=== PATIENT | female | born 1960 | race Caucasian/White ===

== ENCOUNTER 2018-11-29 19:17 | Emergency (ER) | payer MEDICAID, MEDICARE ==
[2018-11-29] MEDS ORDERED: Sulfamethoxazole/Trimethoprim 800-160 MG Tab PO ONE (19:18)
--- NOTE | 2018-11-29 19:56 | EDM.PDOC ---
ED HPI GENERAL MEDICAL PROBLEM - General Chief Complaint: General Stated Complaint: FEVER Time Seen by Provider: 11/29/18 19:33 Source of Information: Reports: Patient History Limitations: Reports: No Limitations - History of Present Illness INITIAL COMMENTS - FREE TEXT/NARRATIVE: Evelny is a 58 yo female who presents to the ED with concerns of a fever. States it started this morning and has been alternating Tylenol and ibuprofen, which has seemed to help. She states she is with the [facility] that is in town and does [facility] She isn't sure if it is upper respiratory stuff or a bladder infection. States the last 4 days she has noticed an increase in frequency, urgency and burning with urination. She admits she has been trying to drink a lot of fluids today. States mostly water and gatorade. Treatments [employer]: Reports: Acetaminophen, NSAIDS - Related Data Allergies Allergy/AdvReac Type Severity Reaction Status Date / Time doxycycline Allergy Rash Verified 11/29/18 19:18 tetracycline Allergy Rash Verified 11/29/18 19:18 Home Meds: Home Meds Albuterol Sulfate [Proair Hfa] 1 inh INH ASDIRECTED 11/29/18 [History] Atenolol 50 mg PO DAILY 11/29/18 [History] Ezetimibe [Zetia] 10 mg PO DAILY 11/29/18 [History] HCTZ/Triamterene [Maxzide 25-37.5 MG] 1 tab PO DAILY 11/29/18 [History] Hydrocodone/Acetaminophen [Hydrocodon-Acetaminophn 10-325] 1 tab PO Q6H PRN [History] Loratadine/Pseudoephedrine [Claritin-D 24 Hour Tablet] 1 tab PO DAILY 11/29/18 [ History] Montelukast [Singulair] 10 mg PO DAILY 11/29/18 [History] Simvastatin 10 mg PO DAILY 11/29/18 [History] tiZANidine HCl [Zanaflex] 2 mg PO DAILY 11/29/18 [History] Past Medical History Cardiovascular History: Reports: High Cholesterol, Hypertension Musculoskeletal History: Reports: Osteoarthritis, Osteoporosis Endocrine/Metabolic History: Reports: Diabetes, Type II - Past Surgical History HEENT Surgical History: Reports: Tonsillectomy Musculoskeletal Surgical History: Reports: Carpal Tunnel Social & Family History - Tobacco Use Smoking Status *Q: Never Smoker - Caffeine Use Caffeine Use: Reports: Coffee, Soda - Recreational Drug Use Recreational Drug Use: No ED ROS GENERAL - Review of Systems Review Of Systems: See Below Constitutional: Reports: Fever, Chills HEENT: Reports: Rhinitis Respiratory: Reports: Cough (dry). Denies: Shortness of Breath, Wheezing, Sputum Cardiovascular: Reports: No Symptoms GI/Abdominal: Reports: Diarrhea. Denies: Bloody Stool, Nausea, Vomiting : Reports: Dysuria, Flank Pain, Frequency, Urgency. Denies: Hematuria ED EXAM, GENERAL - Physical Exam Exam: See Below Exam Limited By: No Limitations General Appearance: Alert, WD/WN, No Apparent Distress Ears: Normal External Exam, Normal Canal, Hearing Grossly Normal, Normal TMs Nose: Normal Inspection, Normal Mucosa, No Blood Throat/Mouth: Normal Inspection, Normal Lips, Normal Teeth, Normal Gums, Normal Oropharynx, Normal Voice, No Airway Compromise Head: Atraumatic, Normocephalic Neck: Normal Inspection, Supple Respiratory/Chest: No Respiratory Distress, Lungs Clear, Normal Breath Sounds, No Accessory Muscle Use, Chest Non-Tender, Other (dry cough) Cardiovascular: Normal Peripheral Pulses, No Edema, No Murmur GI/Abdominal: Soft, Tender, Hernia (reducible umbilical), Other (obese) Back Exam: CVA Tenderness (L), CVA Tenderness (R) Neurological: Alert, Oriented, Normal Cognition, No Motor/Sensory Deficits Psychiatric: Normal Affect, Normal Mood Skin Exam: Dry, Intact, No Rash, Increased Warmth Course - Vital Signs Last Recorded V/S: Last Vital Signs Temp 99.3 F 11/29/18 20:13 Pulse 83 11/29/18 19:18 Resp 18 11/29/18 19:18 BP 153/68 H 11/29/18 19:18 Pulse Ox 98 11/29/18 19:18 - Orders/Labs/Meds Orders: Active Orders 24 hr Category Date Time Status CULTURE URINE [RM] Stat Lab 11/29/18 19:41 Received Sodium Chloride 0.9% [Normal Saline] 1,000 ml Med 11/29/18 20:01 Active IV .BOLUS Medication Orders Sodium Chloride (Normal Saline) 1,000 mls @ 999 mls/hr IV .BOLUS ONE Stop: 11/29/18 21:01 Last Admin: 11/29/18 20:08 Dose: 999 mls/hr Labs: Laboratory Tests 11/29/18 11/29/18 11/29/18 Range/Units 19:41 19:41 19:52 WBC 8.1 (5.0-10.0) 10^3/uL RBC 4.79 (4.00-5.50) 10^6/uL Hgb 13.7 (12.0-16.0) g/dL Hct 42.0 (37.0-47.0) % MCV 87.7 (82.0-94.0) fL MCH 28.6 (27.0-32.0) pg MCHC 32.6 L (33.0-38.0) g/dL RDW Coeff of Elena 13.1 (11.0-15.0) % Plt Count 260 (150-400) 10^3/uL Neut % (Auto) 71.6 (35-85) % Lymph % (Auto) 17.5 (10-55) % [place] % (Auto) 6.6 (0-16) % Eos % (Auto) 4.1 (0-5) % Baso % (Auto) 0.2 (0-3) % Neut # (Auto) 5.79 (1.80-7.00) 10^3/uL Lymph # (Auto) 1.41 (1.00-4.80) 10^3/uL [place] # (Auto) 0.53 (0.00-0.80) 10^3/uL Eos # (Auto) 0.33 (0.00-0.45) 10^3/uL Baso # (Auto) 0.02 10^3/uL Sodium 142 (136-145) mEq/L Potassium 4.0 (3.5-5.0) mEq/L Chloride 106 (98-106) mEq/L Carbon Dioxide 28 (21-32) mmol/L BUN 16 (7-18) mg/dL Creatinine 0.7 (0.6-1.0) mg/dL Est Cr Clr Drug Dosing 80.75 mL/min Estimated GFR (MDRD) > 60 (>=60) mL/min Glucose 107 H (75-99) mg/dL Calcium 9.1 (8.4-10.1) mg/dL Total Bilirubin 0.4 (0.0-1.0) mg/dL AST 12 L (15-37) U/L ALT 22 (12-78) U/L Alkaline Phosphatase 71 (46-116) U/L C-Reactive Protein 1.6 H (0.2-0.8) mg/dL Total Protein 7.0 (6.4-8.2) g/dL Albumin 3.5 (3.4-5.0) g/dL Urine Color Yellow (YELLOW) Urine Appearance Cloudy (CLEAR) Urine pH 6.0 (4.5-8.0) Ur Specific [place] 1.025 H (1.003-1.020) Urine Protein Trace H (NEGATIVE) mg/dL Urine Glucose (UA) Negative (NEGATIVE) mg/dL Urine Ketones Trace H (NEGATIVE) mg/dL Urine Occult Blood Small H (NEGATIVE) Urine Nitrite Positive H (NEGATIVE) Urine Bilirubin Negative (NEGATIVE) Urine Urobilinogen 0.2 (0.2-1.0) EU/dL Ur Leukocyte Esterase Trace H (NEGATIVE) Urine RBC 20-30 H (0-5) /HPF Urine WBC 20-30 H (0-5) /HPF Calcium Oxalate Crystal Moderate H (NOT SEEN) /HPF Urine Bacteria Many H (NOT SEEN) /HPF Meds: Medications Generic Name Dose Route Start Last Admin Trade Name Freq PRN Reason Stop Dose Admin Sodium Chloride 1,000 mls @ 999 mls/hr 11/29/18 20:01 11/29/18 20:08 Normal Saline IV 11/29/18 21:01 999 mls/hr .BOLUS ONE Administration Discontinued Medications Generic Name Dose Route Start Last Admin Trade Name Freq PRN Reason Stop Dose Admin Acetaminophen 650 mg 11/29/18 19:57 11/29/18 20:00 Tylenol PO 11/29/18 19:58 650 mg NOW ONE Administration Ceftriaxone Sodium 1 gm 11/29/18 20:01 11/29/18 20:08 Rocephin IVPUSH 11/29/18 20:02 1 gm ONETIME ONE Administration - Re-Assessments/Exams Free Text/Narrative Re-Assessment/Exam: Urinalysis did confirm UTI. Labs otherwise stable. 1 liter of NS was given with 1 gram of Rocephin. Temperature did improve to 99. Will discharge at this time with oral antibiotics. Patient states she is feeling a lot better and feels satisfactory for discharge. 11/29/18 21:11 Departure - Departure Time of Disposition: 21:09 Disposition: Home, Self-Care 01 Clinical Impression: UTI, Urinary tract infectious disease - Discharge Information Instructions: Urinary Tract Infection, Adult, [id number] Forms: ED Department Discharge Additional Instructions: 1) Increase fluids as discussed 2) Recommend resting tonight and tomorrow. If fever is broke, may return to work on Thursday 3) Bactrim DS - 1 tablet twice a day for 7 days, we did culture your urine and if antibiotic is resistance, will call with change in antibiotic 4) Alternate Tylenol and ibuprofen every 3-4 hours as needed for fevers. Do not take more than 4000mg total of Tylenol in a 24 hour period 5) If unable to break fevers, symptoms are worsening, advise returning to ER> - Problem List & Annotations (1) UTI, Urinary tract infectious disease SNOMED Code(s): 86174445 Code(s): N39.0 - URINARY TRACT INFECTION, SITE NOT SPECIFIED Status: Acute Current Visit: Yes - My Orders Last 24 Hours: My Active Orders 11/29/18 19:41 CULTURE URINE [RM] Stat 11/29/18 20:01 Sodium Chloride 0.9% [Normal Saline] 1,000 ml IV .BOLUS - Assessment/Plan Last 24 Hours: My Active Orders 11/29/18 19:41 CULTURE URINE [RM] Stat 11/29/18 20:01 Sodium Chloride 0.9% [Normal Saline] 1,000 ml IV .BOLUS Plan: See course and additional instructions.
[2018-11-29] MEDS ORDERED: Acetaminophen 325 MG Tab PO ONE (19:57)
[2018-11-29] MEDS ORDERED: cefTRIAXone 1 GM Vial IVPUSH ONE (20:01)
[2018-11-29] MEDS ORDERED: Sodium Chloride 0.9% 1,000 ML IV ONE (20:01)
[2018-11-29 20:12] LABS: CHLORIDE,CL 106 mEq/L (98-106); SODIUM,NA 142 mEq/L (136-145)
[2018-11-29] MEDS ORDERED: Take Home: Sulfamethoxazole/Trimethoprim 800-160 MG Tab, 2 Tab Pack PO ONE (21:06)
== END 2018-11-29 21:25 | disposition home or self-care (01) ==
LOC: CC.ED 19:17
DX: N39.0 Urinary tract infection, site not specified (principal)
CPT/HCPCS: 36415; 80053; 81001; 85025; 86140; 87086; 87088; 87186; 96361; 96374; 99283-25; A9270-GY; J0696; J7030